=== PATIENT | female | born 1990 | race Caucasian/White ===

== ENCOUNTER 2020-08-11 14:17 | Emergency (ER) | payer MEDICAID ==
[2020-08-11 14:46] VITALS: BP 122/78
--- NOTE | 2020-08-11 14:58 | ED Physician Documentation ---
PD HPI HEENT - Stated complaint Stated Complaint: FACE SWELLING - Chief complaint Chief Complaint: Heent - History obtained from History obtained from: Patient - Additional information Additional information: For last 3 days she is woke up with her periorbital area swollen on the right with crusty drainage from the right eye. There is no associated visual deficit or change. She notes pain from a left maxillary molar for the last week or so and plans to see her dentist as well. No facial swelling in that area. Review of Systems Constitutional: reports: Reviewed and negative Eyes: reports: Reviewed and negative Throat: reports: Reviewed and negative PD PAST MEDICAL HISTORY - Present Medications Home Medications: Ambulatory Orders Medication Instructions Recorded Confirmed Erythromycin Base [Erythromycin 1 appful OP 5XD 7 Days #1 gm 08/11/20 Ophthalmic Ointment] clindamycin HCL [Cleocin HCl] 300 mg PO QID #28 08/11/20 - Allergies Allergies/Adverse Reactions: Allergies Allergy/AdvReac Type Severity Reaction Status Date / Time Penicillins Allergy Hives Verified 08/11/20 14:46 PD ED PE NORMAL - Vitals Vital signs reviewed: Yes - General General: Alert and oriented X 3, No acute distress - HEENT HEENT: PERRL, EOMI, Other (Very mild right-sided conjunctivitis without periorbital edema at this juncture. She has a large cavity from the last remaining molar on the left maxilla with mild tenderness but no trismus.) - Neck Neck: Supple, no meningeal sign, No bony TTP - Neuro Neuro: Alert and oriented X 3, Normal speech Results - Vitals Vitals: Vital Signs - 24 hr 08/11/20 14:44 Temperature 36.4 C L Heart Rate 90 Respiratory 16 Rate Blood Pressure 122/78 O2 Saturation 99 Oxygen O2 Source Room air Departure - Departure Disposition: Home, Self Care Clinical Impression: Pain due to dental caries Conjunctivitis Qualifiers: Conjunctivitis type: acute Acute conjunctivitis type: unspecified Laterality: right Qualified Code(s): H10.31 - Unspecified acute conjunctivitis, right eye Condition: Good Record reviewed to determine appropriate education?: Yes Instructions: ED Tooth Pain Prescriptions: clindamycin HCL [Cleocin HCl] 300 mg PO QID #28 Erythromycin Base [Erythromycin Ophthalmic Ointment] 1 appful OP 5XD 7 Days #1 gm Comments: Follow-up with your dentist, return for new or worsening symptoms. Forms: Activity restrictions
== END 2020-08-11 15:04 | disposition home or self-care (01) ==
LOC: ED 14:17
DX: K02.9 Dental caries, unspecified (principal); H10.31 Unspecified acute conjunctivitis, right eye
CPT/HCPCS: 99282; 99284

== ENCOUNTER 2021-02-20 12:59 | Emergency (ER) | payer MEDICAID ==
[2021-02-20 13:16] VITALS: BP 110/67
--- NOTE | 2021-02-20 14:02 | ED Physician Documentation ---
History of Present Illness - Stated complaint Stated Complaint: FEVER,CHILLS,N/V,FEMALE - Chief complaint Chief Complaint: Fever - History obtained from History obtained from: Patient - History of Present Illness Pain level max: 0 Pain level now: 0 - Additonal information Additional information: Patient is a 30-year-old female who states that she is had cough, congestion chin and slight fever for the past several days. She has refused her Covid vaccination. She is concerned about potential Covid and is requesting a test. She states she also has vaginal discharge that feels like a yeast infection. Denies any changes in sexual partners. Nothing makes it better or worse. No abdominal pain. No back pain. Review of Systems Constitutional: denies: Fever, Chills Nose: reports: Rhinorrhea / runny nose, Congestion Throat: denies: Sore throat Cardiac: denies: Chest pain / pressure Respiratory: reports: Cough GI: denies: Abdominal Pain, Vomiting, Diarrhea : denies: Dysuria, Frequency, Hesitancy, Now EGA Skin: denies: Rash PD PAST MEDICAL HISTORY - Past Medical History Past Medical History: No - Past Surgical History Past Surgical History: Yes General: Cholecystectomy /SECURITY ADMINISTRATOR: section HEENT: Tonsil/Adenoidectomy - Present Medications Home Medications: Ambulatory Orders Medication Instructions Recorded Confirmed Control Pill 08/11/20 Erythromycin Base [Erythromycin 1 appful OP 5XD 7 Days #1 gm 08/11/20 Ophthalmic Ointment] clindamycin HCL [Cleocin HCl] 300 mg PO QID #28 08/11/20 metroNIDAZOLE [Flagyl] 500 mg PO BID #14 tablet 02/20/21 - Allergies Allergies/Adverse Reactions: Allergies Allergy/AdvReac Type Severity Reaction Status Date / Time naproxen Allergy Unknown Verified 02/20/21 13:16 Penicillins Allergy Hives Verified 02/20/21 13:16 - Living Situation Living Arrangement: reports: At home - Social History Does the pt smoke?: No Smoking Status: Never smoker Does the pt drink ETOH?: No Does the pt have substance abuse?: No PD ED PE NORMAL - Vitals Vital signs reviewed: Yes - General General: Alert and oriented X 3, No acute distress - HEENT HEENT: Moist mucous membranes, Pharynx benign - Neck Neck: Supple, no meningeal sign - Cardiac Cardiac: RRR, Strong equal pulses - Respiratory Respiratory: No respiratory distress, Clear bilaterally - Abdomen Abdomen: Soft, Non tender, Non distended - Female Female : Pt declined - Back Back: No spinal TTP - Derm Derm: Warm and dry, No rash - Extremities Extremities: No edema - Neuro Neuro: Alert and oriented X 3 Results - Vitals Vitals: Vital Signs - 24 hr 02/20/21 13:12 Temperature 37.5 C Heart Rate 75 Respiratory 16 Rate Blood Pressure 110/67 O2 Saturation 97 Oxygen O2 Source Room air - Labs Labs: Laboratory Tests 02/20/21 02/20/21 14:00 14:00 C. glabrata (PCR) NEGATIVE C. krusei (PCR) NEGATIVE Mari species DNA NEGATIVE Chlam trachomat DNA PCR NEGATIVE N.gonorrhoeae DNA (PCR) NEGATIVE T. vaginalis (PCR) POSITIVE A POSITIVE A Bact Vaginosis (PCR) POSITIVE A PD MEDICAL DECISION MAKING - ED course Complexity details: reviewed results, re-evaluated patient, considered differential, d/w patient ED course: 30-year-old female presents with concerns about potential Covid. Covid swab performed. She will follow up on the results. She declines a pelvic examination, performed self swab for bacterial vaginitis and STD testing. Patient tested positive for trichomonas and bacterial vaginitis. A prescription was sent to [facility] in [place]. Patient informed. Departure - Departure Disposition: 01 Home, Self Care Clinical Impression: Viral URI, Vaginal discharge Condition: Good Instructions: ED Viral Syndrome Follow-Up: your,doctor as needed. [Other] Prescriptions: metroNIDAZOLE [Flagyl] 500 mg PO BID #14 tablet Comments: You have a Covid test pending. You need to self quarantine until the result is done and negative. The results should be done in 24-48 hours. We will call with a positive result, the fastest way to get a negative result for confirmati on though is to go to the hospital website at [email or web address], click on the my [email or web address] tab and sign up for the patient portal. If any of your friends and/or family need to be tested, they can call the hospital at [phone] for an appointment to have their Covid test. Your bacterial vaginitis and other testing swabs will be back either today or tomorrow, I will call you if they are positive. Any prescriptions will be sent to [facility] in [place]. Forms: Activity restrictions Discharge Date/Time: 02/20/21 14:08
[2021-02-20 18:22] LABS: BACTERIAL VAGINOSIS DNA POSITIVE (NEGATIVE); CANDIDA GLABRATA DNA NEGATIVE (NEGATIVE); CANDIDA GROUP DNA NEGATIVE (NEGATIVE); CANDIDA KRUSEI DNA NEGATIVE (NEGATIVE); TRICHOMONAS VAGINALIS DNA POSITIVE (NEGATIVE)
[2021-02-20 20:55] LABS: CHLAMYDIA TRACHOMATIS DNA NEGATIVE (NEGATIVE); NEISSERIA GONORRHOEAE DNA NEGATIVE (NEGATIVE)
[2021-02-20 21:05] LABS: TRICHOMONAS VAGINALIS DNA POSITIVE (NEGATIVE)
== END 2021-02-20 14:08 | disposition home or self-care (01) ==
LOC: ED 12:59
DX: U07.1 COVID-19 (principal); J06.9 Acute upper respiratory infection, unspecified; N89.8 Other specified noninflammatory disorders of vagina
CPT/HCPCS: 87491; 87591; 87661; 87801; 99283

== ENCOUNTER 2021-08-01 15:48 | Emergency (ER) | payer MEDICAID ==
[2021-08-01 16:11] VITALS: BP 105/57
--- NOTE | 2021-08-01 17:18 | ED Physician Documentation ---
History of Present Illness - Stated complaint Stated Complaint: SORE THROAT,STUFFY,HEADACHE - Chief complaint Chief Complaint: Heent - History obtained from History obtained from: Patient - History of Present Illness Timing: How many days ago (5) Pain level max: 5 Pain level now: 4 - Additonal information Additional information: 30-year-old female presents to the emergency department left lower dental pain. Ongoing for the past several days, worse with eating and drinking, nothing makes it better. No fevers. No chills. Does have nasal congestion and left ear pain. No cough. Covid vaccinated. Denies any possibility of . Review of Systems Constitutional: denies: Fever, Chills GI: denies: Vomiting, Diarrhea Skin: denies: Rash Musculoskeletal: denies: Neck pain, Back pain Neurologic: denies: Headache PD PAST MEDICAL HISTORY - Past Medical History Past Medical History: No - Past Surgical History Past Surgical History: Yes General: Cholecystectomy /CAD DETAILER: section HEENT: Tonsil/Adenoidectomy - Present Medications Home Medications: Ambulatory Orders Medication Instructions Recorded Confirmed clindamycin HCL [Cleocin HCl] 300 mg PO Q6H #40 cap 08/01/21 - Allergies Allergies/Adverse Reactions: Allergies Allergy/AdvReac Type Severity Reaction Status Date / Time naproxen Allergy Unknown Verified 08/01/21 16:11 Penicillins Allergy Hives Verified 08/01/21 16:11 - Living Situation Living Situation: reports: With family Living Arrangement: reports: At home - Social History Does the pt smoke?: No Smoking Status: Never smoker Does the pt drink ETOH?: No Does the pt have substance abuse?: No PD ED PE NORMAL - Vitals Vital signs reviewed: Yes - General General: Alert and oriented X 3, No acute distress - HEENT HEENT: Ears normal, Moist mucous membranes, Other (Dental caries left lower molar. No gingival swelling or abscess. Normal phonation. No trismus. Normal facial exam) - Neck Neck: Supple, no meningeal sign - Cardiac Cardiac: RRR, Strong equal pulses - Respiratory Respiratory: No respiratory distress, Clear bilaterally - Abdomen Abdomen: Soft, Non tender, Non distended - Derm Derm: Warm and dry - Neuro Neuro: Alert and oriented X 3 - Psych Psych: Normal mood, Normal affect Results - Vitals Vitals: Vital Signs - 24 hr 08/01/21 16:06 Temperature 36.9 C Heart Rate 80 Respiratory 16 Rate Blood Pressure 105/57 L O2 Saturation 99 Oxygen O2 Source Room air PD MEDICAL DECISION MAKING - ED course Complexity details: considered differential, d/w patient ED course: Patient with dental caries. Will place on antibiotics. No evidence of bacterial coinfection, likely has a viral URI as well. Patient counseled regarding signs and symptoms for which I believe and urgent re-evaluation would be necessary. Patient with good understanding of and agreement to plan and is comfortable going home at this time This document was made in part using voice recognition software. While efforts are made to proofread this document, sound alike and grammatical errors may occur. Departure - Departure Disposition: 01 Home, Self Care Clinical Impression: Pain due to dental caries Condition: Good Instructions: ED Tooth Pain Follow-Up: your,dentist within 1 week [Other] Prescriptions: clindamycin HCL [Cleocin HCl] 300 mg PO Q6H #40 cap Comments: Patient was sent to [facility] in [place]. Please take all antibiotics until gone. Return if you worsen. Follow-up with your dentist for further care. Forms: Activity restrictions Discharge Date/Time: 08/01/21 17:35
== END 2021-08-01 17:35 | disposition home or self-care (01) ==
LOC: ED 15:48
DX: K02.9 Dental caries, unspecified (principal); Z20.822 Contact with and (suspected) exposure to COVID-19
CPT/HCPCS: 99282; 99283